=== PATIENT | female | born 1990 | race Caucasian/White ===

== ENCOUNTER 2022-07-09 01:28 | Emergency (ER) | payer MEDICAID, OTHER ==
[2022-07-09] MEDS ORDERED: KETOROLAC 15 MG/ML VIAL IVP ONE (01:45)
--- NOTE | 2022-07-09 01:48 | ED Back Pain ---
General Chief Complaint: Back Problems Stated Complaint: LOWER BACK PAIN History of Present Illness Date Seen by Provider: Jul 09, 2022 Time Seen by Provider: 01:38 Initial Comments 32-year-old female is here with complaints of bilateral low back pain which began earlier today and has been worsening. Patient works at [employer]. 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 Patient states that the pain is greater on the left side. Denies radiation of pain. Denies fever and chills, trauma, injuries, falls. Allergies and Home Medications Allergies Coded Allergies: Penicillins (Verified Allergy, Unknown, 07/09/22) Patient Home Medication List Home Medication List Reviewed: Yes Review of Systems Constitutional: no symptoms reported EENTM: no symptoms reported Respiratory: no symptoms reported Cardiovascular: no symptoms reported Gastrointestinal: no symptoms reported Genitourinary: no symptoms reported Musculoskeletal: back pain Skin: no symptoms reported Psychiatric/Neurological: No Symptoms Reported Past Kbcofaf-Fhpsap-Vgbjcc Hx Patient Social History Tobacco Use?: No Use of E-Cig and/or Vaping dev: Yes E-Cig or Vaping type used: Nicotine Substance use?: No Alcohol Use?: No Pt feels they are or have been: No Physical Exam Vital Signs Vital Signs - First Documented 07/09/22 01:31 Temp 36.6 Pulse 76 Resp 18 B/P (MAP) 141/86 (104) Pulse Ox 97 O2 Delivery Room Air Capillary Refill : Height, Weight, BMI Height: '" Weight: lbs. oz. kg; BMI Method: General Appearance: No Apparent Distress, WD/WN HEENT: PERRL/EOMI Neck: Full Range of Motion, Normal Inspection, Non Tender Gastrointestinal: Non Tender, Soft Back: Normal Inspection, No CVA Tenderness, No Vertebral Tenderness, Muscle Spasm (Paraspinal muscle spasm present bilaterally at the level of the lumbar and sacral areas.), Other (Straight leg test negative, no saddle anesthesia. Patient able to ambulate and bear weight without any issues.) Extremity: Normal Range of Motion Neurologic/Psychiatric: Alert, Oriented x3, No Motor/Sensory Deficits Skin: Normal Color Progress/Results/Core Measures Results/Orders My Orders Orders - DALE HARRISON MD Ketorolac Injection (Toradol Injection) (07/09/22 01:45) Ed Iv/Invasive Line Start (07/09/22 01:51) Medications Given in ED Current Medications Medications Dose Ordered Sig/[facility] Route Start Time Stop Time Status Last Admin Dose Admin Ketorolac Tromethamine 15 mg ONCE ONCE IVP 07/09/22 01:45 07/09/22 01:47 DC 07/09/22 01:49 15 MG Vital Signs/I&O 07/09/22 01:31 Temp 36.6 Pulse 76 Resp 18 B/P (MAP) 141/86 (104) Pulse Ox 97 O2 Delivery Room Air Progress Progress Note : Progress Note 1. LUMBAR PARASPINAL MUSCLE SPASM: - Toradol iv STAT. Improvement with this - Advised adequate hydration - Advised Ibuprofen 600mg every 6 hours as needed. Over the counter Lidoderm patches. Heat application - Gentle stretching advised. -Follow-up with PCP in the next 7 to 10 days -The patient was seen in the ED, and treated appropriately to presentation at a specific point in time. Patient is informed that there is a possibility that disease and illness can evolve and change in acuity rapidly or slowly after patient is discharged from the ER. Precautionary advice given to the patient for immediate return to ER if symptoms worsen or do not resolve, and to seek e mergency care sooner rather than later. Pt also advised on the importance of PCP follow up and compliance with management and follow up plan with PCP and/or specialist, as this is part of the management plan. Pt verbally expressed understanding. Departure Impression Primary Impression: Lumbar paraspinal muscle spasm Disposition: HOME, SELF-CARE Condition: Improved Departure-Patient Inst. Patient Instructions: Muscle Spasms (DC), Using Heat for Pain Add. Discharge Instructions: - Advised adequate hydration - Advised Ibuprofen 600mg every 6 hours as needed. Over the counter Lidoderm patches. Heat application - Gentle stretching advised. - Avoid heavy lifting -Follow-up with PCP in the next 7 to 10 days All discharge instructions reviewed with patient and/or family. Voiced understanding. Work/School Note: Work Release Form Date Seen in the Emergency Department: Jul 09, 2022 Return to Work: Jul 11, 2022 Restrictions: Need Release from Doctor Other Restrictions Listed Below: No heavy lifting DALE HARRISON MD Jul 09, 2022 01:47
[2022-07-09 02:13] VITALS: BP 141/86
== END 2022-07-09 02:22 | disposition home or self-care (01) ==
LOC: ER FS 01:30
DX: M62.830 Muscle spasm of back (principal); F17.290 Nicotine dependence, other tobacco product, uncomplicated; Z28.310 Unvaccinated for COVID-19